=== PATIENT | male | born 1965 | race Asian ===

== ENCOUNTER 2021-02-19 18:00 | Emergency (ER) | payer OTHER, SELFPAY ==
--- NOTE | ~2021-02-19 | XR_ITS ---
EXAMINATION: XR CHEST CLINICAL INFORMATION: Cough and fever. COMPARISON: None TECHNIQUE: Frontal view of the chest was obtained. FINDINGS: The lungs are well-expanded with increased bilateral parahilar interstitial markings likely interstitial pneumonitis or edema. The heart size enlarged. There is no consolidation pleural effusion. No gross bony abnormality.. XR/XR chest 1V IMPRESSION: Bilateral increased parahilar interstitial markings suggestive of interstitial pneumonitis or edema. Mild cardiomegaly. No consolidation seen.
[2021-02-19 18:25] VITALS: BP 147/95; PULSE 90; RESP 16; TEMP 37.4; O2SAT 98; BMI 24.3
--- NOTE | 2021-02-19 20:32 | ED_ITS ---
HPI - URI/Sore Throat General Chief Complaint: Upper Respiratory Symptoms <REBECCA Brown Last Filed: 02/19/21 23:39> Stated Complaint: cough, sob, fever <REBECCA Brown Last Filed: 02/19/21 23:39> Time Seen by Provider: 02/19/21 20:08 <REBECCA Brown Last Filed: 02/19/21 23:39> Source: patient <REBECCA Brown Last Filed: 02/19/21 23:39> Mode of arrival: ambulatory <REBECCA Brown Last Filed: 02/19/21 23:39> Limitations: no limitations <REBECCA Brown Last Filed: 02/19/21 23:39> History of Present Illness HPI Narrative: 55-year-old male here with complaints of cough, wheezing, subjective fevers, mild shortness of breath with coughing for 2 days. No chest pain, leg swelling or pain. He is not vaccinated for COVID <REBECCA Brown Last Filed: 02/19/21 23:39> Related Data Home Medications: Previous Rx's Medication Instructions Recorded prednisone 20 mg tablet 40 mg PO DAILY #8 tab 02/19/21 <REBECCA Brown Last Filed: 02/19/21 23:39> Allergies/Adverse Reactions: Allergies Allergy/AdvReac Type Severity Reaction Status Date / Time No Known Allergies Allergy Verified 02/19/21 18:27 <REBECCA Brown Last Filed: 02/19/21 23:39> Review of Systems Review of Systems: Yes all other systems are reviewed and are negative <REBECCA Brown Last Filed: 02/19/21 23:39> Constitutional: Constitutional: Reports no additional constitutional complaints, Denies body ache(s), Denies chills, Reports fever(s), Denies headache(s) and Denies weakness <REBECCA Brown Last Filed: 02/19/21 23:39> Eyes: Eyes: Reports no additional eye complaints and Denies change in vision <REBECCA Brown Last Filed: 02/19/21 23:39> ENT: Reports system reviewed and no additional complaints, except as documented, Denies dizziness, Denies headache(s), Denies nasal congestion, Denies nasal discharge and Denies neck pain <Brittany Christian NP - Last Filed: 02/19/21 23:39> Cardiovascular: Cardiovascular: Reports no additional cardiovascular complaints, Denies chest pain, Denies leg edema and Reports dyspnea <Brittany Christian MILL TENDER SECOND OPERATOR - Last Filed: 02/19/21 23:39> Respiratory: Respiratory: Reports no additional respiratory complaints, Reports cough, Reports dyspnea and Reports wheezing <Brittany Christian NP - Last Filed: 02/19/21 23:39> Gastrointestinal: Gastrointestinal: Reports no additional gastrointestinal complaints, Denies abdominal pain, Denies diarrhea, Denies nausea and Denies vomiting <Brittany Christian MILL TENDER SECOND OPERATOR - Last Filed: 02/19/21 23:39> Genitourinary: Genitourinary: Denies urinary incontinence <Brittany Christian NP - Last Filed: 02/19/21 23:39> Musculoskeletal: Musculoskeletal: Reports no additional musculoskeletal complaints, Denies back pain, Denies arthralgias, Denies joint swelling, Denies neck pain, Denies numbness and Denies tingling <Brittany Christian NP - Last Filed: 02/19/21 23:39> Integumentary/Breasts: Skin/Breast: Reports system reviewed and no additional complaints, except as docu and Denies rash <Brittany Christian NP - Last Filed: 02/19/21 23:39> Neurologic: Denies Abnormal speech present, Denies dizziness, Denies headache(s), Denies numbness, Denies tingling and Denies weakness <Brittany Christian NP - Last Filed: 02/19/21 23:39> Allergic/Immunologic: Allergic/Immunologic: Reports wheezing <Brittany Christian NP - Last Filed: 02/19/21 23:39> PMFSH Past Medical History Attestation statement: The following information was validated with the patient. <Brittany Christian NP - Last Filed: 02/19/21 23:39> Source: old records reviewed and nursing notes reviewed <REBECCA Brown L ast Filed: 02/19/21 23:39> Social History Social History: Social History Advance Directives: No Advance Directives Information Provided: Yes <Brittany Christian NP - Last Filed: 02/19/21 23:39> Physical Exam Vital Signs: Vital Signs: Last Vital Signs Temp 99.4 F 02/19/21 18:25 Pulse 90 02/19/21 18:25 Resp 16 02/19/21 18:25 BP 147/95 H 02/19/21 18:25 Pulse Ox 98 02/19/21 18:25 Body Mass Index 24.3 <Brittany Christian NP - Last Filed: 02/19/21 23:39> Vital Signs: Last Vital Signs Temp 99.4 F 02/19/21 18:25 Pulse 90 02/19/21 18:25 Resp 16 02/19/21 18:25 BP 147/95 H 02/19/21 18:25 Pulse Ox 98 02/19/21 18:25 Body Mass Index 24.3 <Sander Hickey MD - Last Filed: 02/19/21 23:05> Const: General: cooperative, healthy appearing, comfortable and no acute distress <Brittany Christian NP - Last Filed: 02/19/21 23:39> Orientation/consciousness: patient oriented x3 <REBECCA Brown Last F iled: 02/19/21 23:39> Limitations: no limitations <Brittany Christian NP - Last Filed: 02/19/21 23:39> HENMT: Head: Yes normal to inspection <Brittany Christian NP - Last Filed: 02/19/21 23:39> Ears: hearing grossly normal bilaterally <Brittany Christian NP - Last Filed: 02/19/21 23:39> General nose exam: Normal external nose present <Brittany Christian NP - Last Filed: 02/19/21 23:39> Face and sinus: Yes normal facial exam <Brittany Christian NP - Last Filed: 02/19/21 23:39> Mouth: Normal oral and palatal mucosa present <Brittany Christian NP - Last Filed: 02/19/21 23:39> Throat: Yes posterior oropharynx normal <Brittany Christian NP - Last Filed: 02/19/21 23:39> Eyes: General: appearance normal, both eyes and all related structures <Brittany Christian MILL TENDER SECOND OPERATOR - Last Filed: 02/19/21 23:39> Pupils: Equal, round and reactive pupils present <Brittany Christian MILL TENDER SECOND OPERATOR - Last Filed: 02/19/21 23:39> Neck: Neck: Yes normal visual inspection <Brittany Christian MILL TENDER SECOND OPERATOR - Last Filed: 02/19/21 23:39> Chest: Chest palpation & inspection: normal inspection of the chest <Brittany Christian MILL TENDER SECOND OPERATOR - Last Filed: 02/19/21 23:39> Resp: Other: Mild expiratory wheezing, prolonged expiration, frequent bronchospastic cough <Brittany Christian NP - Last Filed: 02/19/21 23:39> Effort & Inspection: normal respiratory effort <Brittany Christian MILL TENDER SECOND OPERATOR - Last Filed: 02/19/21 23:39> Cardio: Rate: regular rate <Brittany Christian NP - Last Filed: 02/19/21 23:39> Rhythm: regular rhythm <Brittany Christian NP - Last Filed: 02/19/21 23:39> Peripheral pulses: Peripheral pulses 2+ throughout <Brittany Christian NP - Last Filed: 02/19/21 23:39> GI: Inspection: Yes normal to inspection <Brittany Christian NP - Last Filed: 02/19/21 23:39> Palpation (GI): Soft to palpation and nontender <Brittany hCristian NP - Last Filed: 02/19/21 23:39> Auscultation: normal bowel sounds <Brittany Christian NP - Last Filed: 02/19/21 23:39> Back/Spine/Pelvis: Thoracic/Lumbar Spine: thoracic and lumbar spine normal to inspection <Brittany Christian NP - Last Filed: 02/19/21 23:39> Skin: General skin exam: no rashes or lesions noted <Brittany Christian NP - Last Filed: 02/19/21 23:39> Neuro: General: patient oriented x3, no focal motor deficits and normal sensation to monofilament <Brittany Christian MILL TENDER SECOND OPERATOR - Last Filed: 02/19/21 23:39> Cranial nerves: Yes Equal, round and reactive pupils present <Brittany Christian MILL TENDER SECOND OPERATOR - Last Filed: 02/19/21 23:39> Cognition (Neuro): normal cognition <Brittany Christian MILL TENDER SECOND OPERATOR - Last Filed: 02/19/21 23:39> Speech: No Abnormal speech present <Brittany Christian NP - Last Filed: 02/19/21 23:39> Gait exam (Neuro): Normal gait present <Brittany Christian NP - Last Filed: 02/19/21 23:39> Motor exam (neuro): 5/5 motor strength present throughout <Brittany Christian NP - Last Filed: 02/19/21 23:39> Extrem: General: Yes normal to inspection, Yes no pedal edema and Yes no calf tenderness <Brittany Christian NP - Last Filed: 02/19/21 23:39> Course Course Course Narrative: 55-year-old male previously healthy on vaccinated for COVID here with complaints of cough, wheezing, shortness of breath with coughing and subjective fevers for 2-3 days. Will check chest x-ray, COVID screen. The patient has some mild expiratory wheezing with a frequent bronchospastic cough. Will give albuterol MDI and reassess 2049-COVID positive. Chest x-ray is concerning for pneumonitis versus edema. Mild cardiomegaly with no history of same. Will need labs, EKG 2329-labs including troponin are unremarkable. EKG shows no ischemic changes. The chest x-ray was reviewed with Dr. Lewis. Consistent with viral pneumonia. Patient did have some improvement with albuterol MDI so will prescribe course of prednisone for 5 days. No hypoxia. Patient appears clinically well Lengthy discussion with the patient about care at home. We discussed returning for worsening shortness of breath, chest pain, leg pain/swelling, fever which does not improve with tylenol/motrin. Comfortable with discharge home. <Brittany Christian NP - Last Filed: 02/19/21 23:39> Reevaluation(s) Reevaluation #1: I have discussed the case and management with the LESTER. patient not hypoxic, xray looks like viral pneumonitis, COVID positive will dc home with instructions <Sander Hickey MD - Last Filed: 02/19/21 23:05> Time: 23:05 <Sander Hickey MD - Last Filed: 02/19/21 23:05> MDM - URI/Sore Throat Medical Records Attestation: I reviewed the patient's medical records. <Brittany Christian NP - Last Filed: 02/19/21 23:39> Lab Data Attestation: I reviewed the patient's lab results. <Birttany Christian NP - Last Filed: 02/19/21 23:39> Result diagrams: : 02/19/21 21:28 02/19/21 22:41 <Brittany Christian NP - Last Filed: 02/19/21 23:39> Labs: Lab Results 02/19/21 02/19/21 02/19/21 Range/Units 20:19 21:28 21:28 WBC 3.5 L (4.8-10.8) X10*3/uL RBC 4.30 L (4.60-5.80) X10*6/uL Hgb 12.2 L (14.0-18.0) g/dl Hct 36.1 L (42-52) % MCV 84.0 (80-98) fL MCH 28.4 (27.0-33.0) pg MCHC 33.8 (31.0-36.0) g/dl RDW 12.9 (11.0-16.0) % Plt Count 118 L (160-400) X10*3/uL MPV 10.1 (9.4-12.4) fL Immature Gran % (Auto) 0.3 (0.0-0.4) % Neut % (Auto) 66.1 (45-73) % Lymph % (Auto) 27.6 (20-40) % Lares % (Auto) 6.0 (2-11) % Eos % (Auto) 0.0 (0-4) % Baso % (Auto) 0.0 (0-2) % Lymph # (Auto) 1.0 L (1.2-4.9) X10*3/uL Lares # (Auto) 0.2 (0.1-1.2) X10*3/uL Eos # (Auto) 0.0 (0.0-0.4) X10*3/uL Baso # (Auto) 0.0 (0.0-0.2) X10*3/uL Abs Immat Gran (auto) 0.01 (0.00-0.03) X10*3/uL Absolute Neuts (auto) 2.3 (2.0-8.3) X10*3/uL Absolute Nucleated RBC 0.000 (0.0-0.012) X10*3/uL Nucleated RBC % (auto) 0.0 (0.0-0.2) /100WBC Smear Tech's Comments VERIFIED Sodium (135-145) mmol/L Potassium (3.3-5.1) mmol/L Chloride (96-108) mmol/L Carbon Dioxide (22-29) mmol/L Anion Gap (12-20) BUN (9-16) mg/dL Creatinine (0.5-1.4) mg/dL Estim Creat Clear Calc Estimated GFR Random Glucose (60-115) mg/dL Lactic Acid (0.5-2.0) mmol/L Calcium (8.4-10.2) mg/dL Ferritin (20-250) ng/mL Total Bilirubin (0.0-1.0) mg/dL Direct Bilirubin (0.0-0.5) mg/dL AST (5-37) U/L ALT (0-40) U/L Alkaline Phosphatase (39-117) U/L Lactate Dehydrogenase (118-273) U/L Troponin I High Sens 5.2 (<3.5-35.0) ng/L C-Reactive Protein (< or = 0.50) mg/dL B-Natriuretic Peptide (<100) pg/mL Total Protein (6.5-8.0) g/dL Albumin (3.5-5.0) g/dL Procalcitonin ng/mL COVID-19 (COLLEEN) Positive A (Negative) COVID-19 Clin Com See Note 02/19/21 02/19/21 02/19/21 Range/Units 21:28 21:28 22:41 WBC (4.8-10.8) X10*3/uL RBC (4.60-5.80) X10*6/uL Hgb (14.0-18.0) g/dl Hct (42-52) % MCV (80-98) fL MCH (27.0-33.0) pg MCHC (31.0-36.0) g/dl RDW (11.0-16.0) % Plt Count (160-400) X10*3/uL MPV (9.4-12.4) fL Immature Gran % (Auto) (0.0-0.4) % Neut % (Auto) (45-73) % Lymph % (Auto) (20-40) % Lares % (Auto) (2-11) % Eos % (Auto) (0-4) % Baso % (Auto) (0-2) % Lymph # (Auto) (1.2-4.9) X10*3/uL Lares # (Auto) (0.1-1.2) X10*3/uL Eos # (Auto) (0.0-0.4) X10*3/uL Baso # (Auto) (0.0-0.2) X10*3/uL Abs Immat Gran (auto) (0.00-0.03) X10*3/uL Absolute Neuts (auto) (2.0-8.3) X10*3/uL Absolute Nucleated RBC (0.0-0.012) X10*3/uL Nucleated RBC % (auto) (0.0-0.2) /100WBC Smear Tech's Comments Sodium 130 L (135-145) mmol/L Potassium 3.6 (3.3-5.1) mmol/L Chloride 100 (96-108) mmol/L Carbon Dioxide 21 L (22-29) mmol/L Anion Gap 13 (12-20) BUN 13 (9-16) mg/dL Creatinine 0.99 (0.5-1.4) mg/dL Estim Creat Clear Calc 79.6 Estimated GFR > 60 Random Glucose 106 (60-115) mg/dL Lactic Acid 1.0 (0.5-2.0) mmol/L Calcium 8.4 (8.4-10.2) mg/dL Ferritin (20-250) ng/mL Total Bilirubin 0.7 (0.0-1.0) mg/dL Direct Bilirubin 0.3 (0.0-0.5) mg/dL AST 49 H (5-37) U/L ALT 42 H (0-40) U/L Alkaline Phosphatase 46 (39-117) U/L Lactate Dehydrogenase 282 H (118-273) U/L Troponin I High Sens (<3.5-35.0) ng/L C-Reactive Protein 2.83 H (< or = 0.50) mg/dL B-Natriuretic Peptide < 10 (<100) pg/mL Total Protein 6.9 (6.5-8.0) g/dL Albumin 4.1 (3.5-5.0) g/dL Procalcitonin ng/mL COVID-19 (COLLEEN) (Negative) COVID-19 Clin Com 02/19/21 02/19/21 Range/Units 22:41 22:41 WBC (4.8-10.8) X10*3/uL RBC (4.60-5.80) X10*6/uL Hgb (14.0-18.0) g/dl Hct (42-52) % MCV (80-98) fL MCH (27.0-33.0) pg MCHC (31.0-36.0) g/dl RDW (11.0-16.0) % Plt Count (160-400) X10*3/uL MPV (9.4-12.4) fL Immature Gran % (Auto) (0.0-0.4) % Neut % (Auto) (45-73) % Lymph % (Auto) (20-40) % Lares % (Auto) (2-11) % Eos % (Auto) (0-4) % Baso % (Auto) (0-2) % Lymph # (Auto) (1.2-4.9) X10*3/uL Lares # (Auto) (0.1-1.2) X10*3/uL Eos # (Auto) (0.0-0.4) X10*3/uL Baso # (Auto) (0.0-0.2) X10*3/uL Abs Immat Gran (auto) (0.00-0.03) X10*3/uL Absolute Neuts (auto) (2.0-8.3) X10*3/uL Absolute Nucleated RBC (0.0-0.012) X10*3/uL Nucleated RBC % (auto) (0.0-0.2) /100WBC Smear Tech's Comments Sodium (135-145) mmol/L Potassium (3.3-5.1) mmol/L Chloride (96-108) mmol/L Carbon Dioxide (22-29) mmol/L Anion Gap (12-20) BUN (9-16) mg/dL Creatinine (0.5-1.4) mg/dL Estim Creat Clear Calc Estimated GFR Random Glucose (60-115) mg/dL Lactic Acid (0.5-2.0) mmol/L Calcium (8.4-10.2) mg/dL Ferritin 688 H (20-250) ng/mL Total Bilirubin (0.0-1.0) mg/dL Direct Bilirubin (0.0-0.5) mg/dL AST (5-37) U/L ALT (0-40) U/L Alkaline Phosphatase (39-117) U/L Lactate Dehydrogenase (118-273) U/L Troponin I High Sens (<3.5-35.0) ng/L C-Reactive Protein (< or = 0.50) mg/dL B-Natriuretic Peptide (<100) pg/mL Total Protein (6.5-8.0) g/dL Albumin (3.5-5.0) g/dL Procalcitonin 0.07 ng/mL COVID-19 (COLLEEN) (Negative) COVID-19 Clin Com <Brittany Christian NP - Last Filed: 02/19/21 23:39> Lab Results 02/19/21 02/19/21 02/19/21 Range/Units 20:19 21:28 21:28 WBC 3.5 L (4.8-10.8) X10*3/uL RBC 4.30 L (4.60-5.80) X10*6/uL Hgb 12.2 L (14.0-18.0) g/dl Hct 36.1 L (42-52) % MCV 84.0 (80-98) fL MCH 28.4 (27.0-33.0) pg MCHC 33.8 (31.0-36.0) g/dl RDW 12.9 (11.0-16.0) % Plt Count 118 L (160-400) X10*3/uL MPV 10.1 (9.4-12.4) fL Immature Gran % (Auto) 0.3 (0.0-0.4) % Neut % (Auto) 66.1 (45-73) % Lymph % (Auto) 27.6 (20-40) % Lares % (Auto) 6.0 (2-11) % Eos % (Auto) 0.0 (0-4) % Baso % (Auto) 0.0 (0-2) % Lymph # (Auto) 1.0 L (1.2-4.9) X10*3/uL Lares # (Auto) 0.2 (0.1-1.2) X10*3/uL Eos # (Auto) 0.0 (0.0-0.4) X10*3/uL Baso # (Auto) 0.0 (0.0-0.2) X10*3/uL Abs Immat Gran (auto) 0.01 (0.00-0.03) X10*3/uL Absolute Neuts (auto) 2.3 (2.0-8.3) X10*3/uL Absolute Nucleated RBC 0.000 (0.0-0.012) X10*3/uL Nucleated RBC % (auto) 0.0 (0.0-0.2) /100WBC Smear Tech's Comments VERIFIED Sodium (135-145) mmol/L Potassium (3.3-5.1) mmol/L Chloride (96-108) mmol/L Carbon Dioxide (22-29) mmol/L Anion Gap (12-20) BUN (9-16) mg/dL Creatinine (0.5-1.4) mg/dL Estim Creat Clear Calc Estimated GFR Random Glucose (60-115) mg/dL Lactic Acid (0.5-2.0) mmol/L Calcium (8.4-10.2) mg/dL Ferritin (20-250) ng/mL Total Bilirubin (0.0-1.0) mg/dL Direct Bilirubin (0.0-0.5) mg/dL AST (5-37) U/L ALT (0-40) U/L Alkaline Phosphatase (39-117) U/L Lactate Dehydrogenase (118-273) U/L Troponin I High Sens 5.2 (<3.5-35.0) ng/L C-Reactive Protein (< or = 0.50) mg/dL B-Natriuretic Peptide (<100) pg/mL Total Protein (6.5-8.0) g/dL Albumin (3.5-5.0) g/dL Procalcitonin ng/mL COVID-19 (COLLEEN) Positive A (Negative) COVID-19 Clin Com See Note 02/19/21 02/19/21 02/19/21 Range/Units 21:28 21:28 22:41 WBC (4.8-10.8) X10*3/uL RBC (4.60-5.80) X10*6/uL Hgb (14.0-18.0) g/dl Hct (42-52) % MCV (80-98) fL MCH (27.0-33.0) pg MCHC (31.0-36.0) g/dl RDW (11.0-16.0) % Plt Count (160-400) X10*3/uL MPV (9.4-12.4) fL Immature Gran % (Auto) (0.0-0.4) % Neut % (Auto) (45-73) % Lymph % (Auto) (20-40) % Lares % (Auto) (2-11) % Eos % (Auto) (0-4) % Baso % (Auto) (0-2) % Lymph # (Auto) (1.2-4.9) X10*3/uL Lares # (Auto) (0.1-1.2) X10*3/uL Eos # (Auto) (0.0-0.4) X10*3/uL Baso # (Auto) (0.0-0.2) X10*3/uL Abs Immat Gran (auto) (0.00-0.03) X10*3/uL Absolute Neuts (auto) (2.0-8.3) X10*3/uL Absolute Nucleated RBC (0.0-0.012) X10*3/uL Nucleated RBC % (auto) (0.0-0.2) /100WBC Smear Tech's Comments Sodium 130 L (135-145) mmol/L Potassium 3.6 (3.3-5.1) mmol/L Chloride 100 (96-108) mmol/L Carbon Dioxide 21 L (22-29) mmol/L Anion Gap 13 (12-20) BUN 13 (9-16) mg/dL Creatinine 0.99 (0.5-1.4) mg/dL Estim Creat Clear Calc 79.6 Estimated GFR > 60 Random Glucose 106 (60-115) mg/dL Lactic Acid 1.0 (0.5-2.0) mmol/L Calcium 8.4 (8.4-10.2) mg/dL Ferritin (20-250) ng/mL Total Bilirubin 0.7 (0.0-1.0) mg/dL Direct Bilirubin 0.3 (0.0-0.5) mg/dL AST 49 H (5-37) U/L ALT 42 H (0-40) U/L Alkaline Phosphatase 46 (39-117) U/L Lactate Dehydrogenase 282 H (118-273) U/L Troponin I High Sens (<3.5-35.0) ng/L C-Reactive Protein 2.83 H (< or = 0.50) mg/dL B-Natriuretic Peptide < 10 (<100) pg/mL Total Protein 6.9 (6.5-8.0) g/dL Albumin 4.1 (3.5-5.0) g/dL Procalcitonin ng/mL COVID-19 ([facility]LEEN) (Negative) COVID-19 Clin Com 02/19/21 02/19/21 Range/Units 22:41 22:41 WBC (4.8-10.8) X10*3/uL RBC (4.60-5.80) X10*6/uL Hgb (14.0-18.0) g/dl Hct (42-52) % MCV (80-98) fL MCH (27.0-33.0) pg MCHC (31.0-36.0) g/dl RDW (11.0-16.0) % Plt Count (160-400) X10*3/uL MPV (9.4-12.4) fL Immature Gran % (Auto) (0.0-0.4) % Neut % (Auto) (45-73) % Lymph % (Auto) (20-40) % Lares % (Auto) (2-11) % Eos % (Auto) (0-4) % Baso % (Auto) (0-2) % Lymph # (Auto) (1.2-4.9) X10*3/uL Lares # (Auto) (0.1-1.2) X10*3/uL Eos # (Auto) (0.0-0.4) X10*3/uL Baso # (Auto) (0.0-0.2) X10*3/uL Abs Immat Gran (auto) (0.00-0.03) X10*3/uL Absolute Neuts (auto) (2.0-8.3) X10*3/uL Absolute Nucleated RBC (0.0-0.012) X10*3/uL Nucleated RBC % (auto) (0.0-0.2) /100WBC Smear Tech's Comments Sodium (135-145) mmol/L Potassium (3.3-5.1) mmol/L Chloride (96-108) mmol/L Carbon Dioxide (22-29) mmol/L Anion Gap (12-20) BUN (9-16) mg/dL Creatinine (0.5-1.4) mg/dL Estim Creat Clear Calc Estimated GFR Random Glucose (60-115) mg/dL Lactic Acid (0.5-2.0) mmol/L Calcium (8.4-10.2) mg/dL Ferritin 688 H (20-250) ng/mL Total Bilirubin (0.0-1.0) mg/dL Direct Bilirubin (0.0-0.5) mg/dL AST (5-37) U/L ALT (0-40) U/L Alkaline Phosphatase (39-117) U/L Lactate Dehydrogenase (118-273) U/L Troponin I High Sens (<3.5-35.0) ng/L C-Reactive Protein (< or = 0.50) mg/dL B-Natriuretic Peptide (<100) pg/mL Total Protein (6.5-8.0) g/dL Albumin (3.5-5.0) g/dL Procalcitonin 0.07 ng/mL COVID-19 (COLLEEN) (Negative) COVID-19 Clin Com <Sander Hickey MD - Last Filed: 02/19/21 23:05> Imaging Data Chest x-ray: Attestation: I personally reviewed and interpreted this imaging study as follows: <Brittany Christian NP - Last Filed: 02/19/21 23:39> Radiologist's impression: [address] [address] XRay Report Signed Patient: Moo Pepe MR#: [id number] : 1965 Acct:[id number] Age/Sex: 55 / M ADM Date: 02/19/21 Loc: .ED Attending Dr: Ordering Physician: Brittany Christian NP Date of Service: 02/19/21 Procedure(s): XR chest 1V Accession Number(s): [id number] cc: Brittany Christian NP~ EXAMINATION: XR CHEST CLINICAL INFORMATION: Cough and fever. COMPARISON: None TECHNIQUE: Frontal view of the chest was obtained. FINDINGS: The lungs are well-expanded with increased bilateral parahilar interstitial markings likely interstitial pneumonitis or edema. The heart size enlarged. There is no consolidation pleural effusion. No gross bony abnormality.. XR/XR chest 1V IMPRESSION: Bilateral increased parahilar interstitial markings suggestive of interstitial pneumonitis or edema. Mild cardiomegaly. No consolidation seen. ? <Brittany Christian NP - Last Filed: 02/19/21 23:39> ECG Data Attestation: I personally reviewed and interpreted this ECG as follows: <Birttany Christian NP - Last Filed: 02/19/21 23:39> ECG interpretation date: 02/19/21 <Brittany Christian NP - Last Filed: 02/19/21 23:39> ECG interpretation time: 21:07 <Brittany Christian NP - Last Filed: 02/19/21 23:39> Interpretation: Normal sinus rhythm with rate 87, normal ID, normal QRS, normal QT <Brittany Christian NP - Last Filed: 02/19/21 23:39> Discharge Plan Discharge Clinical Impression: COVID-19, Pneumonia due to COVID-19 virus <Brittany Christian NP - Last Filed: 02/19/21 23:39> Patient Disposition: Home, Self-Care <Brittany Christian NP - Last Filed: 02/19/21 23:39> Instructions: Viral Pneumonia (ED), COVID-19 (Coronavirus Disease 2019) (ED) <Brittany Christian NP - Last Filed: 02/19/21 23:39> Additional Instructions: Start your prednisone tomorrow Increase fluids, rest Take Motrin or Tylenol for pain or fever Return for worsening shortness of breath, chest pain <Brittany Christian NP - Last Filed: 02/19/21 23:39> Prescriptions: New prednisone 20 mg tablet 40 mg PO DAILY Qty: 8 RF: 0 <Brittany Christian NP - Last Filed: 02/19/21 23:39> Referrals: Physician,Unknown [Primary Care Provider] - 2 days <Brittany Christian NP - Last Filed: 02/19/21 23:39> Stand Alone Forms: Work/School Release <REBECCA Brown Last Filed: 02/19/21 23:39>
[2021-02-19 20:33] LABS: COVID-19 Test Positive (Negative); IDNOW Serial# 9DD0AD1C
--- NOTE | 2021-02-19 20:50 | ECG_ITS ---
Test Reason : RESPIRATORY Blood Pressure : / mmHG Vent. Rate : 087 BPM Atrial Rate : 087 BPM P-R Int : 150 ms QRS Dur : 106 ms QT Int : 364 ms P-R-T Axes : 019 017 007 degrees QTc Int : 438 ms Normal sinus rhythm Normal ECG No previous ECGs available Referred By: Brittany Christian Electronically Signed By:THERESA ALEMAN
[2021-02-19] MEDS: Albuterol Sulfate 90 MCG 8 GM INHALER 2 PUFF INHALE (21:07)
[2021-02-19 21:41] LABS: Hematocrit 36.1 % (42-52); Hemoglobin 12.2 g/dl (14.0-18.0); Imm Gran Abs Auto 0.01 X10*3/uL (0.00-0.03); Imm Gran Pct Auto 0.3 % (0.0-0.4); Lymphocytes Percent Auto 27.6 % (20-40); MANUAL DIFF FLAG SCAN; Mean Corpuscular HGB Conc 33.8 g/dl (31.0-36.0); Mean Corpuscular Hemoglobin 28.4 pg (27.0-33.0); Mean Platelet Volume 10.1 fL (9.4-12.4); Monocytes Absolute Auto 0.2 X10*3/uL (0.1-1.2); Neutrophils Absolute Auto 2.3 X10*3/uL (2.0-8.3); Neutrophils Percent Auto 66.1 % (45-73); Platelet Count 118 X10*3/uL (160-400); Red Cell Distribution Width 12.9 % (11.0-16.0); SCAN SMEAR FLAG 1; White Blood Count 3.5 X10*3/uL (4.8-10.8)
[2021-02-19 22:02] LABS: B Type Natriuretic Peptide < 10 pg/mL (<100); SLIDE REVIEW VERIFIED; Troponin-I High Sensitivity 5.2 ng/L (<3.5-35.0)
[2021-02-19 23:08] LABS: Alanine Aminotransferase 42 U/L (0-40); Albumin Level 4.1 g/dL (3.5-5.0); Alkaline Phosphatase 46 U/L (39-117); Anion Gap 13 (12-20); Aspartate Amino Transferase 49 U/L (5-37); Bilirubin Direct 0.3 mg/dL (0.0-0.5); Bilirubin Total 0.7 mg/dL (0.0-1.0); Blood Urea Nitrogen 13 mg/dL (9-16); C Reactive Protein 2.83 mg/dL (< or = 0.50); Calcium 8.4 mg/dL (8.4-10.2); Carbon Dioxide 21 mmol/L (22-29); Chloride 100 mmol/L (96-108); Creatinine Clr Calc Pharmacy 79.6; Estimated Glomerular Filt Rate > 60; Glucose Random 106 mg/dL (60-115); Lactate Dehydrogenase 282 U/L (118-273); Potassium 3.6 mmol/L (3.3-5.1); Sodium 130 mmol/L (135-145); Total Protein 6.9 g/dL (6.5-8.0)
[2021-02-19 23:27] LABS: Ferritin 688 ng/mL (20-250)
[2021-02-19 23:28] LABS: Procalcitonin 0.07 ng/mL
[2021-02-19] MEDS: predniSONE 20 MG TABLET 60 MG PO (23:31)
== END 2021-02-19 23:42 | disposition home or self-care (01) ==
PROVIDERS: Nurse Practitioner Family; Emergency Provider Emergency Medicine
DX: U07.1 COVID-19 (principal); J12.82 Pneumonia due to coronavirus disease 2019; R06.02 Shortness of breath; R05 Cough; Z79.899 Other long term (current) drug therapy
CPT/HCPCS: 36415; 71045; 80048; 80076; 82728; 83605; 83615; 83880; 84145; 84484; 85025; 86140; 87040; 87635; 93005; 99284

== ENCOUNTER 2021-03-05 14:50 | Outpatient (REF) | payer OTHER, SELFPAY | END 2021-03-05 14:51 | disposition home or self-care (01) | LOC: HO.LAB 14:50 | PROVIDERS: Visit Provider Internal Medicine | DX: Z20.822 Contact with and (suspected) exposure to COVID-19 (principal) | CPT/HCPCS: C9803; U0003; U0005 ==

== ENCOUNTER 2022-07-07 11:43 | Outpatient (REF) | payer SELFPAY ==
[2022-07-08 07:52] LABS: HBS Num1 0.34 mIU/mL (0-7.99); HBc Num1 0.09 S/CO (0.00-0.79); HBsAGNum1 0.32 S/CO (0.00-0.99); Hepatitis B Core Antibody Nonreactive (Nonreactive); Hepatitis B Surface Antigen Negative (Negative); ~Hepatitis B Surface Antibody NONREACTIVE (Nonreactive)
[2022-07-09 20:38] LABS: TS Negative Control Passed; TS Panel A 5; TS Panel B 0; TS Positive Control Passed; TSpotTB Borderline (Negative)
== END 2022-07-07 11:44 | disposition home or self-care (01) ==
LOC: HO.LAB 11:43
PROVIDERS: PCP Internal Medicine; Visit Provider Internal Medicine
DX: Z00.00 Encounter for general adult medical examination without abnormal findings (principal)
CPT/HCPCS: 36415; 86481; 86704; 86706; 86735; 86762; 86765; 86787; 87340

== ENCOUNTER 2023-09-22 09:16 | Emergency (ER) | payer SELFPAY ==
--- NOTE | ~2023-09-22 | XR_ITS ---
EXAMINATION: XR HAND, LEFT CLINICAL INFORMATION: Trauma COMPARISON: None available. TECHNIQUE: PA, lateral, and oblique views of the left hand. FINDINGS: There is a nondisplaced fracture of the middle phalanx of the third finger. On the lateral view there is question of periosteal reaction and this is age indeterminant no other fracture. Joint spaces are normal. There is soft tissue swelling over the third finger. XR/XR hand LT min 3V IMPRESSION: Nondisplaced fracture of the middle phalanx of the third finger. This is indeterminate in age.
[2023-09-22 09:20] VITALS: BP 148/88; PULSE 81; RESP 20; TEMP 36.6; O2SAT 98; BMI 35.7
--- NOTE | 2023-09-22 09:56 | ED.EXTPRO ---
HPI - Extremity Problem General Chief complaint: Extremity Injury, Upper Stated complaint: Broken Finger 09/22/23 Time Seen by Provider: 09/22/23 09:56 Source: patient Mode of arrival: ambulatory Limitations: no limitations History of Present Illness HPI Narrative: Patient is a 58 year old assigned male at with no reported medical history presenting to the emergency department today with left 3rd digit pain. Patient states that he dropped a case of water on his left hand and is now having left 3rd finger pain. Patient denies any dizziness, lightheadedness, abdominal pain, nausea, vomiting, fever, chills, blurry vision, double vision, loss of vision, chest pain, difficulty breathing, shortness of breath, back pain, night sweats, pain with urination, increased urinary frequency, increased urinary urgency, blood in his urine or stool, syncope or a near syncopal episode, bowel incontinence, bladder incontinence, bowel retention, bladder retention, or any other complaints at this time. MD Complaint: extremity pain Pain Consistency: constant Location: left and other (3rd digit) Severity scale (1-10): 4 Quality: aching and dull Radiation: none Relieving factors: immobilization Exacerbating factors: range of motion Associated symptoms: denies other symptoms Related Data Previous Rx's ?Medication ?Instructions ?Recorded prednisone 20 mg tablet 40 mg (2 x 20 mg) PO DAILY #8 tabs 02/19/21 Allergies Allergy/AdvReac Type Severity Reaction Status Date / Time No Known Allergies Allergy Verified 09/22/23 09:21 Review of Systems Constitutional: Constitutional: Reports no additional constitutional complaints, Denies chills, Denies fever(s) and Denies night sweats Eyes: Eyes: Reports no additional eye complaints, Denies blurry vision, Denies change in vision, Denies diplopia, Denies eye discharge, Denies loss of vision and Denies eye pain ENT: Denies dizziness Cardiovascular: Cardiovascular: Reports no additional cardiovascular complaints, Denies chest pain, Denies lightheadedness, Denies Loss of Consciousness and Denies dyspnea Respiratory: Respiratory: Reports no additional respiratory complaints and Denies dyspnea Gastrointestinal: Gastrointestinal: Reports no additional gastrointestinal complaints, Denies abdominal pain, Denies melena, Denies hematochezia, Denies change in bowel habits and Denies change in stool character Genitourinary: Genitourinary: Reports no additional male genitourinary complaints, Denies hematuria, Denies oliguria, Denies difficulty urinating, Denies dysuria, Denies urinary frequency, Denies urinary hesitancy, Denies urinary incontinence and Denies urinary urgency Musculoskeletal: Musculoskeletal: Reports no additional musculoskeletal complaints, Denies numbness and Denies tingling Comments: left 3rd digit pain, swelling, bruising Neurologic: Denies dizziness, Denies loss of vision, Denies numbness and Denies tingling Psychiatric: Psychiatric: Reports no additional psychiatric complaints Endocrine: Endocrine: Reports no additional endocrine complaints Hematologic/Lymphatic: Hematologic/Lymphatic: Reports no additional hematologic/lymphatic complaints Allergic/Immunologic: Allergic/Immunologic: Reports no additional allergic/immunologic complaints [facility] Past Medical History Attestation statement: The following information was validated with the patient. Source: old records reviewed and nursing notes reviewed Social History Social History Advance Directives: No Advance Directives Information Provided: No Do you have a plan to hurt others: No Plan Physical Exam Vital Signs: Vital Signs: Last Vital Signs Temp 97.8 F 09/22/23 10:18 Pulse 81 09/22/23 10:18 Resp 20 09/22/23 10:18 BP 148/88 H 09/22/23 10:18 Pulse Ox 98 09/22/23 10:18 O2 Del Method Room Air 09/22/23 10:18 BMI result Body Mass Index 35.7 Const: General: cooperative, no acute distress, alert and awake Nutritional Appearance: well nourished Orientation/consciousness: patient oriented x3 Limitations: no limitations HEENT: Head: Yes normal to inspection and Yes atraumatic Ears: hearing grossly normal bilaterally and external ears normal General nose exam: Normal external nose present, no nasal discharge noted and no epistaxis Face and sinus: Yes normal facial exam, No abrasion and No laceration Mouth: Normal oral and palatal mucosa present, no drooling and no muffled voice Eyes: General: appearance normal, both eyes and all related structures Periorbital: periorbital findings normal Eyelids: Yes eyelids normal Conjunctivae: conjunctivae normal Pupils: Equal, round and reactive pupils present EOM: EOMs intact bilaterally Neck: Neck: Yes normal visual inspection, Yes full ROM and Yes no lymphadenopathy Chest: Chest palpation & inspection: normal inspection of the chest Resp: Effort & Inspection: normal respiratory effort and able to speak in complete sentences GI: Inspection: Yes normal to inspection Neuro: General: patient oriented x3 and moves all extremities Cranial nerves: Yes Equal, round and reactive pupils present Cognition (Neuro): normal cognition Motor exam (neuro): 5/5 motor strength present throughout Sensory Exam: Normal double simultaneous stimulation for sensation Coordination: [id number] test normal Extrem: Other: left 3rd digit has circumferential, mild, bruising and pain with palpation and ROM General: Yes full ROM and Yes capillary refill normal Psych: Appearance: grossly normal Mental Status: mental status grossly normal Affect: normal affect Attitude: cooperative Thought process: Normal thought process present Thought content: Normal thought content present Insight: Good insight present (Psych) Medical Decision Making Medical Decision Making MDM Narrative: Patient is a 58 year old assigned male at with no reported medical history presenting to the emergency department today with left 3rd digit pain. Patient's physical exam was as noted in the physical exam portion of this note. Patient's left hand x-ray showed a 3rd digit fracture. I explained my physical exam findings as well as all test results to the patient. I answered all questions asked by the patient. Patient's left 3rd finger was splinted, without incident. Patient's PMS was intact prior to and after splint placement. I stressed the importance of the patient taking his medication as prescribed. I stressed the importance of the patient following up with his primary care provider and an orthopedic provider. I stressed the importance of the patient returning to the emergency department immediately if his symptoms were to worsen or if he were to develop any dizziness, shortness of breath, difficulty breathing, chest pain, blurry vision, loss of vision, nausea, vomiting, abdominal pain, fever, chills, back pain, or any other complaints. Patient verbalized agreement and understanding with this treatment plan and discharge. Differential Diagnosis Differential Diagnoses: The differential diagnosis associated with the presentation includes Finger fracture Finger strain Finger sprain Admission/Observation Consideration of admission/observation: Escalation of care including admission/observation considered Patient would have been admitted to the hospital had his work up had any findings where hospital admission was appropriate and his clinical presentation warranted hospital admission. Independent Interpretation I performed an independent interpretation of an: Plain X-Ray Interpretation: My interpretation is in agreement with the radiologist's impression of this imaging study. EXAMINATION: XR HAND, LEFT CLINICAL INFORMATION: Trauma COMPARISON: None available. TECHNIQUE: PA, lateral, and oblique views of the left hand. FINDINGS: There is a nondisplaced fracture of the middle phalanx of the third finger. On the lateral view there is question of periosteal reaction and this is age indeterminant no other fracture. Joint spaces are normal. There is soft tissue swelling over the third finger. XR/XR hand LT min 3V IMPRESSION: Nondisplaced fracture of the middle phalanx of the third finger. This is indeterminate in age. Dictated By: Gloria Carvajal MD Signed By: Electronically signed by Gloria Carvajal MD 09/22/23 0956 Radiology Impression Discussion of test interpretation with radiology: I have reviewed the radiologist's reading. Procedures Orthopedic Splinting/Casting Injury #1: Side: left Upper Extremity Injury Location: finger (3rd) Upper Extremity Immobilizer: finger (other) and dayami tape Discharge Plan Discharge Clinical Impression: Finger fracture Patient Disposition: Home, Self-Care Instructions: Finger Fracture (ED) Additional Instructions: Leave your splint on until you are evaluated by the orthopedic team. Follow up with your primary care provider and an orthopedic provider. Return to the emergency department immediately if your symptoms worsen or if you develop any dizziness, shortness of breath, difficulty breathing, chest pain, blurry vision, loss of vision, nausea, vomiting, abdominal pain, fever, chills, back pain, or any other complaints. Prescriptions: No Action prednisone 20 mg tablet 40 mg PO DAILY Qty: 8 0RF Referrals: [facility] [place] Family Medicine [Provider Group] (Call to establish and follow up with a primary care provider. If you already have a primary care provider, please follow up with them.) [facility] [place] Primary Dayanara Corona [Provider Group] [facility] [place] Darrin Humphrey [Provider Group] [facility] [place] [facility] [Provider Group] (Call to establish and follow up with an orthopedic provider.) Stand Alone Forms: Work/School Release Interventions: ED Discharge Assessment Last Done: 09/22/23 10:18 Discharge Date/Time: 09/22/23 10:19 Print Language: Citizen Of [place]
[2023-09-22 10:18] VITALS: BP 148/88; PULSE 81; RESP 20; TEMP 36.6; O2SAT 98
== END 2023-09-22 10:19 | disposition home or self-care (01) ==
PROVIDERS: Emergency Provider Emergency Medicine
DX: S62.653A Nondisplaced fracture of middle phalanx of left middle finger, initial encounter for closed fracture (principal); W20.8XXA Other cause of strike by thrown, projected or falling object, initial encounter; Y93.9 Activity, unspecified; Y92.9 Unspecified place or not applicable; Y99.9 Unspecified external cause status
CPT/HCPCS: 73130; 99282; 99283

== ENCOUNTER 2023-09-28 08:34 | Outpatient (REF) | payer SELFPAY | END 2023-09-28 08:35 | disposition home or self-care (01) | LOC: HO.HOSX 08:34 | PROVIDERS: Visit Provider Orthopaedic Surgery | DX: Z13.89 Encounter for screening for other disorder (principal) ==